=== PATIENT | female | born 1950 | race Caucasian/White ===

== ENCOUNTER 2024-07-03 09:08 | Observation (INO) | payer OTHER, SELFPAY ==
[2024-07-03] VITALS (22 sets, daily range): BP systolic 111–148; BP diastolic 67–85; PULSE 55–84; TEMP 36.7–37.1; O2SAT 93–97; BMI 19.7; BMI 18.3
--- NOTE | 2024-07-03 09:20 | CT_ITS ---
[address] [address] Patient Name: MERY KOO MRN: [id number] date: 1950 Sex: F Assigned Patient Location: ER Current Patient Location: ED.MAIN Accession/Order Number: [id number] Exam Date: 07/03/2024 09:50 Report Date: 07/03/2024 10:26 At the request of: RACHELL VIDALES Procedure: CT head/brain wo con EXAMINATION: CT head/brain wo con HISTORY: aMS ; confusion COMPARISON: No relevant comparison available. TECHNIQUE: Axial CT images were obtained without IV contrast. Dose reduction techniques were achieved by using automated exposure control and/or adjustment of mA and/or kV according to patient size and/or use of iterative reconstruction technique. FINDINGS: BRAIN: No edema, hemorrhage, mass, acute infarction, or inappropriate atrophy. CSF SPACES: No hydrocephalus, subarachnoid hemorrhage, or mass. Appropriate for age. SKULL: No fracture, mass, or other significant visible lesion. SINUSES: No significant mucosal thickening or fluid on the limited views. ORBITS: No appreciable abnormality on the limited views. OTHER: Negative CT/CT head/brain wo con IMPRESSION: 1. No intracranial hemorrhage, mass effect, or suspicious findings. 2. Age consistent chronic changes of the brain. 3. Clear sinuses. Electronically authenticated by: ZORAIDA CEDENO Date: 07/03/2024 10:26
--- NOTE | 2024-07-03 09:20 | ECG_ITS ---
The [facility] Test Date: 2024-07-03 Pat Name: MERY KOO Department: Room: - Gender: Female [place] [employer]: : 1950 Requested By: IVETT AGUILERA Order Number: [id number] Reading MD: KENDRICK BANKS Measurements Intervals [place] Rate: 64 P: 77 NV: 134 QRS: 70 QRSD: 88 T: 70 QT: 426 QTc: 435 Interpretive Statements 1100 Sinus rhythm 3434 Septal myocardial infarction, age undetermined 9150 abnormal ECG No previous ECG available for comparison Electronically Signed On 07-05-2024 8:01:16 EST by KENDRICK BANKS
--- NOTE | 2024-07-03 09:20 | XR_ITS ---
The [address] [address] Patient Name: MERY KOO MRN: [id number] date: 1950 Sex: F Assigned Patient Location: ER Current Patient Location: ER Accession/Order Number: [id number] Exam Date: 07/03/2024 09:50 Report Date: 07/03/2024 10:21 At the request of: RACHELL VIDALES Procedure: XR chest 1V EXAM: XR chest 1V HISTORY: . syncope . COMPARISON: None. TECHNIQUE: Single view of the chest FINDINGS: Heart and vascularity are unremarkable. Lungs are free of focal infiltrates. The inferior most aspect of the left cost phrenic angle was excluded on this exam. EKG leads overlie the chest. There is a scoliotic deformity of the thoracolumbar spine with convexity to the right. XR/XR chest 1V IMPRESSION: 1. No acute heart or lung disease identified. 2. Please see above comments. Electronically authenticated by: MARJORIE ASIF Date: 07/03/2024 10:21
--- NOTE | 2024-07-03 09:21 | ED_ITS ---
HPI HPI - General Adult General Chief complaint: Chest Pain Stated complaint: VOMITTING Time Seen by Provider: 07/03/24 09:14 Source: patient Mode of arrival: walk-in Limitations: no limitations History of Present Illness HPI narrative: Patient presenting to the emergency department with her for evaluation of overall not feeling well. Patient states that she drove her granddaughter to school, came back from drop-off, put her car in the garage. She states that she came to the house she started feeling weak, lightheaded, nauseated. states that he washer, that house, she had a stumble day and and sat herself on the couch. She just kept saying she did not feel well. He states that she slumped over and had a syncopal event for approximately 30 seconds to 1 minute. He states she was fully out. She woke up confused, did not remember what happened, just kept saying she did not feel right, and seemed to be altered and confused and. It lasted only several minutes. No shaking episodes, no seizure- like activity. No tongue biting or urination. He states that she then started throwing up. Patient states that she was never having chest pain. At that she was complaining of chest pain, they gave her sublingual nitro and a full dose aspirin. Patient states that she was having abdominal pain, lower part of the abdomen, but was never having any upper abdominal pain nor chest pain. States she is not sure why people keep saying chest pain. It was on the stomach. Patient states that other than feeling well as he had right now she has no complaints. Related Data Home Medications ?Medication ?Instructions ?Recorded ?Confirmed No Known Home Medications 07/03/24 07/03/24 Allergies Allergy/AdvReac Type Severity Reaction Status Date / Time No Known Drug Allergies Allergy Verified 07/03/24 09:10 Opioid HPI Opioid Management Most Recent Opioid Data: No Data to Display Review of Systems ROS Narrative Negative unless otherwise stated in the HPI PFSH PFSH Social History Little interest or pleasure in doing things: not at all Feeling down, depressed, or hopeless: not at all Exam Narrative Exam Narrative: General: NAD, AAOx3, no distress HEENT: NCAT, mmm Respiratory: respiratory effort normal, speaks in full sentences, no tripod position, no accessory muscle use. Lungs clear to auscultation without rhonchi, wheezes, rales Cardiac: Regular rate and rhythm, no edema, regular s1/s2, no m/g/r Abdomen: Soft, ND/NT. No evidence of fluid wave. No pulsatile masses on exam, rebound tenderness, Benito sign or pain over Mcburney's point. Neuro: Speech is clear and appropriate. Normal level of consciousness. Gait and coordination are normal. 5/5 strength in all extremities. Constitutional Vital Signs, click to edit/add: Last Vital Signs Temp 98.2 F 07/03/24 09:10 Pulse 62 07/03/24 10:30 Resp 19 07/03/24 10:30 BP 147/78 H 07/03/24 09:30 Pulse Ox 95 07/03/24 10:30 O2 Del Method Room Air 07/03/24 09:32 Course Vital Signs Vital signs: Vital Signs Temperature 98.2 F 07/03/24 09:10 Pulse Rate 63 07/03/24 09:10 Respiratory Rate 20 07/03/24 09:10 Blood Pressure 141/76 07/03/24 09:10 Pulse Oximetry 95 07/03/24 09:10 Oxygen Delivery Method Room Air 07/03/24 09:10 Temperature 98.2 F 07/03/24 09:10 Pulse Rate 62 07/03/24 10:30 Respiratory Rate 19 07/03/24 10:30 Blood Pressure 147/78 H 07/03/24 09:30 Pulse Oximetry 95 07/03/24 10:30 Oxygen Delivery Method Room Air 07/03/24 09:32 Medical Decision Making MDM Narrative Medical decision making narrative: [address] Crain, unprovoked syncope, mild hypocalcemia with mild ODALYS. Report was given, plan of care was discussed. He is in agreement with plan of care for admission for syncope Lab Data Labs: Lab Results 07/03/24 Range/Units 09:32 WBC 4.1 (4.0-11.0) 10^3/uL RBC 4.24 (4.20-5.40) 10^6/uL Hgb 13.6 (12.0-16.0) g/dL Hct 38.8 (36.0-48.0) % MCV 91.5 (81.0-99.0) fL MCH 32.1 (26.7-34.0) pg MCHC 35.1 (29.9-35.2) g/dL RDW 12.2 (11.0-15.0) % Plt Count 180 (150-450) 10^3/uL MPV 9.8 (9.5-13.5) fL Seg Neuts % (Manual) 85.0 H (43.0-75.0) Band Neutrophils % 3.0 (0-5) % Lymphocytes % (Manual) 6.0 L (20.5-60.0) % Monocytes % (Manual) 5.0 (1.7-12.0) % Eosinophils % (Manual) 0.0 L (0.9-7.0) % Basophils % (Manual) 1.0 (0.2-2.0) % Neutrophils # (Manual) 3.48 (1.4-6.5) 10^3/uL Band Neutrophils # 0.1 (0.0-0.3) 10^3/uL Lymphocytes # (Manual) 0.24 L (1.20-3.80) 10^3/uL Monocytes # (Manual) 0.20 L (0.30-0.80) 10^3/uL Eosinophils # (Manual) 0.00 (0.00-0.70) 10^3/uL Basophils # (Manual) 0.04 (0.00-0.10) 10^3/uL PT 11.1 (9.0-11.6) sec INR 1.05 APTT 26.5 (22.3-36.2) sec Sodium 137 (136-145) mmol/L Potassium 3.5 (3.5-5.1) mmol/L Chloride 101 (98-107) mmol/L Carbon Dioxide 24.2 (21.0-32.0) mmol/L Anion Gap 15.3 BUN 13.0 (7.0-18.0) mg/dL Creatinine 1.16 H (0.55-1.02) mg/dL Est GFR ( Amer) 55 L (>=60 mL/min/1.73m^2) Est GFR (Non-Af Amer) 46 L (>=60 mL/min/1.73m^2) BUN/Creatinine Ratio 11.2 Glucose 127 H (74-106) mg/dL Calcium 8.3 L (8.5-10.1) mg/dL Total Bilirubin 0.5 (0.2-1.0) mg/dL AST 44 H (15-37) U/L ALT 35 (14-59) U/L Alkaline Phosphatase 91 (46-116) U/L Troponin I High Sens <4.0 L (4.0-51.3) pg/mL Total Protein 6.2 L (6.4-8.2) g/dL Albumin 3.4 (3.4-5.0) g/dL Globulin 2.8 g/dL Albumin/Globulin Ratio 1.2 Lipase 21.0 (16.0-77.0) U/L Discharge Plan Discharge Chief Complaint: Chest Pain Patient Disposition: Admitted as Observation Time of Disposition Decision: 11:10 Prescriptions / Home Meds: No Action No Known Home Medications Print Language: Anguill[place] Referrals: IVETT AGUILERA DO [Primary Care Provider] - 1 week
[2024-07-03 09:42] LABS: Hematocrit 38.8 % (36.0-48.0); Hemoglobin 13.6 g/dL (12.0-16.0); Mean Corpuscular HGB Conc 35.1 g/dL (29.9-35.2); Mean Corpuscular Hemoglobin 32.1 pg (26.7-34.0); Mean Corpuscular Volume 91.5 fL (81.0-99.0); Mean Platelet Volume 9.8 fL (9.5-13.5); Platelet Count 180 10^3/uL (150-450); Red Blood Count 4.24 10^6/uL (4.20-5.40); Red Cell Distribution Width 12.2 % (11.0-15.0); White Blood Count 4.1 10^3/uL (4.0-11.0)
[2024-07-03 09:53] LABS: Band Neutrophils Absolute 0.1 10^3/uL (0.0-0.3); Basophils Abs Manual 0.04 10^3/uL (0.00-0.10); INR 1.05; Lymphocytes Absolute Manual 0.24 10^3/uL (1.20-3.80); Partial Thromboplastin Time 26.5 sec (22.3-36.2); Prothrombin Time 11.1 sec (9.0-11.6); Segmented Neut Absolute Manual 3.48 10^3/uL (1.4-6.5)
[2024-07-03 09:54] LABS: Alanine Aminotransferase 35 U/L (14-59); Albumin Globulin Ratio 1.2; Albumin Level 3.4 g/dL (3.4-5.0); Alkaline Phosphatase 91 U/L (46-116); Anion Gap 15.3; Aspartate Amino Transferase 44 U/L (15-37); BUN Creatinine Ratio 11.2; Bilirubin Total 0.5 mg/dL (0.2-1.0); Calcium 8.3 mg/dL (8.5-10.1); Carbon Dioxide 24.2 mmol/L (21.0-32.0); Chloride 101 mmol/L (98-107); Estimated GFR (African America 55 (>=60 mL/min/1.73m^2); Estimated GFR (Non-African Ame 46 (>=60 mL/min/1.73m^2); Globulin 2.8 g/dL; Glucose 127 mg/dL (74-106); Potassium 3.5 mmol/L (3.5-5.1); Sodium 137 mmol/L (136-145); Total Protein 6.2 g/dL (6.4-8.2); Troponin I High Sensitivity <4.0 pg/mL (4.0-51.3)
--- NOTE | 2024-07-03 13:31 | US_ITS ---
The [address] [address] Patient Name: MERY KOO MRN: [id number] date: 1950 Sex: F Assigned Patient Location: MS Current Patient Location: MS Accession/Order Number: [id number] Exam Date: 07/03/2024 13:32 Report Date: 07/03/2024 14:34 At the request of: KENDRICK BANKS Procedure: US carotid duplex BI DUPLEX ULTRASOUND EXAMINATION OF THE CAROTID ARTERIES. COMPARISON: None. HISTORY / INDICATIONS: Altered mental status. TECHNIQUE: Bilateral common carotid arteries, extracranial internal and external carotid arteries are evaluated with bermudez-scale imaging, color Doppler, and spectral analysis according to a standard protocol. ICA/CCA ratios are calculated with commercial pest control representative peak-systolic velocities and recorded. Vertebral arteries are evaluated in one segment to evaluate for patency and character of flow. Comparison with previous evaluation is performed when available. Unless otherwise specified, all velocities are measured in cm/sec. Carotid stenosis is reported according to validated velocity parameters, similar to NASCET criteria. FINDINGS: Right Carotid: Plaque was noted. Velocity measurements as follows: Internal Carotid Artery 80/28 and 192/39. ICA/CCA ratio: 3.2. Left Carotid: Plaque was noted. Velocity measurements as follows: Internal Carotid Artery 91/32 and 130/35. ICA/CCA ratio: 1.5. Antegrade flow was seen in both vertebral arteries. CONCLUSION: 1. 50% to 69% stenosis of the right ICA. 2. 50% to 69% stenosis of the left ICA. 3. Vertebral arteries are patent and demonstrate antegrade flow. Electronically authenticated by: Carlos SALCIDO Date: 07/03/2024 14:34
--- NOTE | 2024-07-03 13:31 | CA_ITS ---
Patient Name: MERY KOO MR#: [id number] : 1950 Exam Date: 07/03/2024 Ordering Doctor: DR KENDRICK BANKS . ECHOCARDIOGRAM REPORT PROCEDURE: CA ECHO DOPPLER COMPLETE INDICATIONS: Dyspnea, syncope COMPARISON: None. DESCRIPTION: COMPLETE ECHOCARDIOGRAM Real-time transthoracic echocardiography with 2D, M-mode, spectral and color flow Doppler performed. QUALITY: Technical quality was good. LEFT VENTRICLE: Normal chamber size. Mild concentric left ventricular hypertrophy. Global left ventricular systolic function is normal. LV EF: Estimated left ventricular ejection fraction is 65%. DIASTOLIC: Normal diastolic function. ATRIAL SEPTUM: LEFT ATRIUM: Normal chamber size. RIGHT ATRIUM: Normal chamber size. RIGHT VENTRICLE: Normal chamber size. Normal right ventricular systolic function. TRICUSPID VALVE: Normal mobility and thickness. No stenosis with mild regurgitation. Mild pulmonary hypertension. RVSP 37 mmHg MITRAL VALVE: Normal mobility and thickness. No evidence of mitral valve stenosis. Mild mitral annular calcification. Trivial mitral regurgitation. AORTIC VALVE: Normal trileaflet appearance. Thickened aortic valve. The noncoronary cusp is calcified at the tip. Normal leaflet mobility. No evidence of aortic valve stenosis. No aortic regurgitation. AORTIC ROOT: Normal diameter and appearance. PULMONIC VALVE: Normal thickness and mobility. No stenosis. Mild regurgitation. PERICARDIUM: No evidence of pericardial effusion. IVC: Collapses with inspirations. Normal size. PLEURA: CONCLUSION: 1. Mild concentric left ventricular hypertrophy with normal systolic function. Estimated LVEF is 65%. 2. Normal right ventricular size and systolic function. 3. Normal diastolic function. 4. No significant valvular dysfunction. 5. Mildly elevated right-sided pressures. Adult Echocardiography Procedure Report Left Ventricle LVEDD (3.7 - 5.6 cm): 3.81 cm LVESD (2.2 - 4.0 cm): 2.51 cm LVIVS thickness (0.6 - 1.2 cm): 1.11 cm LVPW thickness (0.5 - 1.0 cm): 1.10 cm e': 0.11 m/s E - e': 5.33 LVOT Max Gradient: 5.98 mm[Hg] LVOT Area (cm2): 1.22 m/s Peak Velocity (LVOT): 1.22 m/s Mean Velocity (LVOT): 0.78 m/s LVOT Diameter 1.73 cm Left Ventricular Ejection Fraction: 65 % Left Atrium LA Volume Index (2D A2C): 19.41 ml/m2 Left Atrium Systolic Dimension: 2.80 cm Mitral Valve MV E to A Ratio: 0.84 Mitral Valve A-Wave Peak Velocity: 0.70 m/s Mitral Valve E-Wave Peak Velocity: 0.59 m/s Right Ventricle RV Internal Diastolic Dimension: 2.98 cm Aorta AO Root Diam: 2.83 cm Ascending Ao Diam: 2.92 cm Aortic Valve AoV Area (Peak Scout): 2.39 cm2, 2.39 cm2 AoV Area (VTI): 2.14 cm2, 2.14 cm2 Peak Velocity(Antegrade Flow): 1.21 m/s Peak Gradient(Antegrade Flow): 5.83 mm[Hg] Mean Velocity(Antegrade Flow): 0.85 m/s Mean Gradient(Antegrade Flow): 3.26 mm[Hg] Velocity Time Integral: 28.34 cm Tricuspid Valve Peak Velocity (Regurgitant Flow): 2.93 m/s, 2.50 m/s Pulmonic Valve Mean Gradient: 1.71 mm[Hg] Mean Velocity: 0.62 m/s Peak Velocity: 0.81 m/s, 0.87 m/s Peak Gradient: 2.65 mm[Hg], 3.01 mm[Hg] Right Atrium Right Atrium Systolic Pressure: 34.52 ml, 34.52 ml Dictated by: Ruddy Estrella M.D. on 07/03/2024 at 19:29 Approved by: Ruddy Estrella M.D. on 07/03/2024 at 19:33
[2024-07-03 13:53] LABS: Magnesium 1.9 mg/dL (1.8-2.4)
--- NOTE | 2024-07-03 14:02 | NUTR.NU ---
Dietary consult completed this date. CBW 107.3# BMI 18.3 low underweight Interviewed Charlene at bedside. Charlene shared she lost weight starting after her 1st in 2011. Weight at that time was 185# Charlene shared she cooks and eats meals. Charlene has muscle wasting and loss of subcutaneous fat. Recommend Ensure 1 container po bid nutritional supplement.
[2024-07-03 14:06] LABS: Thyroid Stimulating Hormone 0.869 uIU/mL (0.358-3.740)
--- NOTE | 2024-07-03 14:13 | P.HP_ITS ---
HPI H&P: HPI History of Present Illness Chief complaint: VOMITTING, SYNCOPE Narrative: Patient had an at this morning, witnessed syncope, prior to that she felt a little bit off balance but was able to walk but when she walked in the door she does not really recall falling, but does remember getting more tunnel vision according to the reports she was passed out for probably 30 seconds to a minute, took a few minutes to get back reoriented but then was her normal self, no seizure activity noted, after discussion she did have another event earlier in the day where she sent a text message to her daughter but is not resending the text message she took her granddaughter to school she does remember doing that and coming home, the text message was prior to taking her granddaughter to school. Has not had any episodes of this that she knows of. No syncope for sure. She does not take any medications currently. Opioid HPI Opioid Management Most Recent Pain and Opioid Data: Last Pain Scale 0 07/03/24 12:03 07/03/24 Last Pain Assessment 07/03/24 13:52 Last ORT Total Score 1 07/03/24 12:03 07/03/24 Last ORT Risk Category Low Risk 07/03/24 12:03 07/03/24 Review of Systems ROS Status of ROS 10 or more systems reviewed and unremark able except as noted in history and below PFS PFS Medical History (Updated 07/03/24 @ 12:19 by Nidhi Saldaña) Chronic obstructive pulmonary disease ?J44.9 - Chronic obstructive pulmonary disease, unspecified (ICD-10) Hypoglycemia ?E16.2 - Hypoglycemia, unspecified (ICD-10) Uterine cancer ?C55 - Malignant neoplasm of uterus, part unspecified (ICD-10) Family History (Updated 07/03/24 @ 12:43 by Nidhi Saldaña) Father Family history of COPD (chronic obstructive pulmonary disease) Mother Family history of cancer Grandfather Family history of diabetes mellitus Brother Family history of diabetes mellitus Family history of hypertension Other Family history of myocardial infarction Social History (Updated 07/03/24 @ 12:45 by Nidhi Saldaña) Within the past year, how often did you have a drink containing alcohol: monthly or less Within the past year, how many standard drinks containing alcohol did you have on a typical day: 1 or 2 Within the past year, how often did you have six or more drinks on one occasion: never Total score: 0 Score interpretation: A score less than 3 is consistent with normal alcohol consumption. Smoking status: Former smoker Non-prescribed substance use: denies use Previous occupational history: Known occupational exposures/hazards: No Highest level of school completed/degree received: Master's degree Do you want help with school or training: No Are you now , , , , never or living with a partner: In a typical week, how many times do you talk on the telephone with family, friends, or neighbors: 3 or more times per week How often do you get together with friends or relatives: 3 or more times per week How often do you attend methodist or mormonism services: never Do you belong to any clubs or organizations such as methodist groups unions, [employer] or athletic groups, or school groups: no Total score: 2 Score interpretation: A score of greater than or equal to 2 indicates the lowest level of social isolation. Little interest or pleasure in doing things: not at all Feeling down, depressed, or hopeless: not at all Feel stressed/tense/nervous/anxious/difficulty sleeping: not at all Due to disability, difficulty making decisions: No Do you think of yourself as: straight/heterosexual Gender Identity: female Meds Home Medications and Allergies Home Medications ?Medication ?Instructions ?Recorded ?Confirmed ?Type No Known Home Medications 07/03/24 07/03/24 History Allergies Allergy/AdvReac Type Severity Reaction Status Date / Time No Known Drug Allergies Allergy Verified 07/03/24 09:10 Exam Constitutional Vital Signs, click to edit/add: Last Vital Signs Temp 98.4 F 07/03/24 12:03 Pulse 72 07/03/24 12:03 Resp 16 07/03/24 12:03 BP 124/74 07/03/24 12:03 Pulse Ox 97 07/03/24 12:03 O2 Del Method Room Air 07/03/24 12:03 Documenting provider has reviewed patient's vital signs: yes Common normals: no apparent distress Chest Common normals: inspection of chest normal and palpation of chest normal Respiratory Common normals: normal respiratory effort and no retractions Auscultation: diminished lung sounds Cardio Common normals: regular rate, regular rhythm and no murmurs GI Common normals: Normal to inspection, nondistended, normoactive bowel sounds present and soft to palpation Results Labs Labs: Short CBC 07/03/24 Range/Units 09:32 WBC 4.1 (4.0-11.0) 10^3/uL Hgb 13.6 (12.0-16.0) g/dL Hct 38.8 (36.0-48.0) % Plt Count 180 (150-450) 10^3/uL BMP 07/03/24 09:32 Sodium 137 Potassium 3.5 Chloride 101 Carbon Dioxide 24.2 BUN 13.0 Creatinine 1.16 H Glucose 127 H Calcium 8.3 L Liver Function 07/03/24 Range/Units 09:32 Total Bilirubin 0.5 (0.2-1.0) mg/dL AST 44 H (15-37) U/L ALT 35 (14-59) U/L Alkaline Phosphatase 91 (46-116) U/L Albumin 3.4 (3.4-5.0) g/dL Assessment and Plan Assessment and Plan (1) Syncope: (2) Chronic obstructive pulmonary disease: Plan Admission findings: Mildly elevated high blood pressure on admission, slightly elevated creatinine although uncertain of what her baseline is. This occurred after witnessed syncopal episode. Witnessed syncopal episode-CT scan unremarkable, the episode lasted approximately 2 minutes in total, passed out for probably 1 minute and then a minute or so where she was little confused. As there is since that time she been back to her baseline. There is no focal neurological deficits and there is no seizure activity. Watch patient on telemetry, check carotid Doppler and echocardiogram for possible TIA. Will hold off on MRI scan unless symptoms deteriorate, no sign of acute intracranial bleeding at this time. Borderline hypertension-monitor patient does not take any medications currently COPD-patient longer smoking. And currently no symptoms. Admission status: Patient with syncopal episode, will watch on telemetry, medically necessary treatment likely to only span 1 midnight. Observation status. If condition deteriorates necessitating more than 2 midnights, will change patient to inpatient status at that time
[2024-07-03 16:56] LABS: Bilirubin Urine NEGATIVE (NEGATIVE); Blood Urine SMALL (NEGATIVE); Clarity Urine CLEAR (CLEAR); Color Urine LT. YELLOW (YELLOW); Glucose Urine UA NEGATIVE (NEGATIVE); Ketones Urine 15 mg/dL (NEGATIVE); Leukocyte Esterase Urine NEGATIVE (NEGATIVE); Nitrite Urine NEGATIVE (NEGATIVE); Protein Urine NEGATIVE (NEG/TRACE); Urobilinogen Urine 0.2 EU/dL (0.2-1.0)
[2024-07-03 17:11] LABS: Bacteria Urine TRACE #/HPF (NONE SEEN); Cast Seen? NONE SEEN #/LPF (NONE SEEN); Crystals Seen? None Seen #/HPF (None Seen); Mucus Urine TRACE (NONE SEEN); Squamous Epithelial Cell Urine FEW #/LPF (NONE/RARE); WBC Urine NONE SEEN #/HPF (NONE SEEN)
[2024-07-03 17:12] LABS: Urine Culture Indicated NO
[2024-07-03] MEDS: BENZONATATE 100 MG CAPSULE 200 MG PO (21:30)
[2024-07-04] VITALS (7 sets, daily range): BP systolic 107–113; BP diastolic 69; PULSE 61–90; TEMP 36.9–37.2; O2SAT 91–97
[2024-07-04 06:28] LABS: Basophils Percent Auto 0.6 % (0.2-2.0); Eosinophils Percent Auto 0.3 % (0.9-7.0); Hematocrit 38.2 % (36.0-48.0); Hemoglobin 13.1 g/dL (12.0-16.0); Immature Granulocytes Abs Auto 0.01 10^3/uL (0.00-0.03); Immature Granulocytes Pct Auto 0.3 % (0.0-0.5); Lymphocytes Absolute Auto 0.9 10^3/uL (1.2-3.8); Lymphocytes Percent Auto 27.8 % (20.5-60.0); Mean Corpuscular HGB Conc 34.3 g/dL (29.9-35.2); Mean Corpuscular Hemoglobin 31.1 pg (26.7-34.0); Mean Corpuscular Volume 90.7 fL (81.0-99.0); Monocytes Absolute Auto 0.4 10^3/uL (0.3-0.8); Monocytes Percent Auto 10.4 % (1.7-12.0); Neutrophils Absolute Auto 2.1 10^3/uL (1.4-6.5); Neutrophils Percent Auto 60.6 % (43.0-75.0); Platelet Count 180 10^3/uL (150-450); Red Blood Count 4.21 10^6/uL (4.20-5.40); Red Cell Distribution Width 12.4 % (11.0-15.0); White Blood Count 3.4 10^3/uL (4.0-11.0)
[2024-07-04 06:39] LABS: Anion Gap 10.1; BUN Creatinine Ratio 11.7; Carbon Dioxide 27.7 mmol/L (21.0-32.0); Chloride 102 mmol/L (98-107); Estimated GFR (African America >60 (>=60 mL/min/1.73m^2); Estimated GFR (Non-African Ame 58 (>=60 mL/min/1.73m^2); Glucose 112 mg/dL (74-106); Potassium 3.8 mmol/L (3.5-5.1); Sodium 136 mmol/L (136-145)
--- NOTE | 2024-07-04 08:33 | CM.NOTE ---
Rounds made with Dr. Crain, pt will discharge to home on Holter Monitor and f/u with PCP.
--- NOTE | 2024-07-04 09:25 | P.DS_ITS ---
DS: Providers Provider Date of admission: 07/03/24 11:40 Primary care physician: IVETT AGUILERA DO Consults: 07/03/24 Consult to Dietitian Routine Reason for consultation: decresed n[place], weight loss 07/03/24 13:28 Occupational Therapy Eval and Treat Routine Reason for consultation: Only if needed for Rehab Has provider been notified: No Physical Therapy Eval and Treat Routine Reason for consultation: Eval and Treat Has provider been notified: No DS: Diagnosis Discharge Diagnosis (1) Syncope: (2) Chronic obstructive pulmonary disease: Plan Admission findings: Mildly elevated high blood pressure on admission, slightly elevated creatinine although uncertain of what her baseline is. This occurred after witnessed syncopal episode. Witnessed syncopal episode-CT scan unremarkable, the episode lasted approximately 2 minutes in total, passed out for probably 1 minute and then a minute or so where she was little confused. As there is since that time she been back to her baseline. There is no focal neurological deficits and there is no seizure activity. Watch patient on telemetry, check carotid Doppler and echocardiogram for possible TIA. Will hold off on MRI scan unless symptoms deteriorate, no sign of acute intracranial bleeding at this time. Borderline hypertension-monitor patient does not take any medications currently COPD-patient longer smoking. And currently no symptoms. Admission status: Patient with syncopal episode, will watch on telemetry, medically necessary treatment likely to only span 1 midnight. Observation status. If condition deteriorates necessitating more than 2 midnights, will change patient to inpatient status at that time ? DS: Summary Hospital Course Hospital Course: Patient admitted with a witnessed syncopal event. She has some mild prodromal symptoms just before it, but then passed out. She was monitored here, nothing on telemetry that would be significant for causing syncope, carotid Doppler and echocardiogram were unremarkable. This morning however she had this severe sore throat, ordered COVID and influenza titers as that has been predominant in our local community, and she did test positive for COVID. Do not believe this caused her syncope., Will place patient on the Holter monitor the time of discharge, with age patient high risk for complications from COVID-19 and so we will send in medication. Medications see list. Follow-up with PCP next week. Status at Discharge Overall status at discharge: patient is back to baseline Time Spent with Patient Time attestation: Total time spent providing and/or coordinating discharge services: Time spent: greater than 30 minutes Exam Constitutional Vital Signs, click to edit/add: Last Vital Signs Temp 99.0 F 07/04/24 08:00 Pulse 64 07/04/24 08:00 Resp 18 07/04/24 08:00 BP 113/69 07/04/24 08:00 Pulse Ox 91 L 07/04/24 08:00 O2 Del Method Room Air 07/04/24 08:00 Documenting provider has reviewed patient's vital signs: yes Common normals: no apparent distress [facility] Common normals: normocephalic Mouth: oral and palatal mucosa normal Chest Common normals: inspection of chest normal and palpation of chest normal Respiratory Common normals: normal respiratory effort and no retractions Auscultation: diminished lung sounds Cardio Common normals: regular rate, regular rhythm and no murmurs GI Common normals: Normal to inspection, nondistended, normoactive bowel sounds present and soft to palpation DS: Data Data Completed and Pending Labs on day of discharge: Labs from last 24 hours 07/04/24 07/03/24 07/03/24 05:59 16:40 09:32 WBC 3.4 L 4.1 RBC 4.21 4.24 Hgb 13.1 13.6 Hct 38.2 38.8 MCV 90.7 91.5 MCH 31.1 32.1 MCHC 34.3 35.1 RDW 12.4 12.2 Plt Count 180 180 MPV 10.0 9.8 Neut % (Auto) 60.6 Lymph % (Auto) 27.8 [place] % (Auto) 10.4 Eos % (Auto) 0.3 L Baso % (Auto) 0.6 Neut # (Auto) 2.1 Lymph # (Auto) 0.9 L [place] # (Auto) 0.4 Eos # (Auto) 0.0 Baso # (Auto) 0.0 Abs Immat Gran (auto) 0.01 Seg Neuts % (Manual) 85.0 H Band Neutrophils % 3.0 Lymphocytes % (Manual) 6.0 L Monocytes % (Manual) 5.0 Eosinophils % (Manual) 0.0 L Basophils % (Manual) 1.0 Imm/Tot Granulo (auto) 0.3 Neutrophils # (Manual) 3.48 Band Neutrophils # 0.1 Lymphocytes # (Manual) 0.24 L Monocytes # (Manual) 0.20 L Eosinophils # (Manual) 0.00 Basophils # (Manual) 0.04 PT 11.1 INR 1.05 APTT 26.5 Sodium 136 137 Potassium 3.8 3.5 Chloride 102 101 Carbon Dioxide 27.7 24.2 Anion Gap 10.1 15.3 BUN 11.0 13.0 Creatinine 0.94 1.16 H Est GFR ( Amer) >60 55 L Est GFR (Non-Af Amer) 58 L 46 L BUN/Creatinine Ratio 11.7 11.2 Glucose 112 H 127 H Calcium 8.0 L 8.3 L Magnesium 1.9 Total Bilirubin 0.5 AST 44 H ALT 35 Alkaline Phosphatase 91 Troponin I High Sens <4.0 L NT-Pro-B Natriuret Pep 231.0 Total Protein 6.2 L Albumin 3.4 Globulin 2.8 Albumin/Globulin Ratio 1.2 Lipase 21.0 TSH 0.869 Urine Color Lt. yellow Urine Clarity Clear Urine pH 6.0 Ur Specific [place] 1.020 Urine Protein Negative Urine Glucose (UA) Negative Urine Ketones 15 A Urine Occult Blood Small A Urine Nitrite Negative Urine Bilirubin Negative Urine Urobilinogen 0.2 Ur Leukocyte Esterase Negative Urine RBC 2-5 A Urine WBC None seen Ur Squamous Epith Cells Few A Urine Crystals None seen Urine Bacteria Trace A Urine Casts None seen Urine Mucus Trace A Ur Culture Indicated? No Discharge Plan Discharge Disposition: Home, Self-Care Discharge Medications: New Paxlovid 300 mg (150 mg x 2)-100 mg tablets,dose pack See Rx Instructions .ROUTE .COMPLEX Qty: 30 0RF Rx Instructions: take TWO 150 mg tablets of nirmatrelvir with ONE 100 mg tablet of ritonavir twice daily for 5 days Pharmacy: Normal creatinine dexamethasone 6 mg tablet 6 mg PO DAILY Qty: 5 0RF azithromycin 250 mg tablet See Rx Instructions .ROUTE .COMPLEX Qty: 6 0RF Rx Instructions: For 250 mg dose pack: take 500 mg today (day 1), then 250 mg for 4 days (days 2-5) Activity: resume usual activities as tolerated Diet: advance to your usual diet Print Language: [place] Patient Instructions: Syncope (DC) Forms: Portal Instructions Follow Up Appointments: Dr. Aguilera's office will call to schedule a follow up appt. [phone]
[2024-07-04 09:55] LABS: Influenza Virus A Antigen Negative; Influenza Virus B Antigen Negative; Internal Control Within Normal Limits
[2024-07-04 09:56] LABS: Internal Control Within Normal Limits; SARS-CoV-2 Ag POSITIVE (NEGATIVE)
--- NOTE | 2024-07-05 15:29 | CM.DCFOLLOWU ---
Person spoke with:patient How are you feeling?well, taking it easy How is your pain?none Did you understand your discharge instructions?yes Do you have any questions about your discharge instructions? no Were you given any prescriptions at discharge? yes Were you able to get your prescriptions filled? yes Do you understand how to take your medications as ordered? yes Do you have any questions about your follow up appointment and do you plan to keep your follow up appointment? no questions, she is waiting to hear from Dr. Stearns Is there anything else that you would like to discuss? no Questions/Comments/Concerns/Other:none
== END 2024-07-04 11:57 | disposition home or self-care (01) ==
LOC: ER 11:10 → MS 11:44
PROVIDERS: Admitting Provider Family Medicine; Emergency Provider Emergency Medicine; PCP Internal Medicine; Visit Provider Family Medicine
DX: R55 Syncope and collapse (principal); R07.9 Chest pain, unspecified; J44.9 Chronic obstructive pulmonary disease, unspecified; Z87.891 Personal history of nicotine dependence; R03.0 Elevated blood-pressure reading, without diagnosis of hypertension; U07.1 COVID-19
CPT/HCPCS: 36415; 70450; 71045; 80048; 80053; 81001; 83690; 83735; 83880; 84443; 84484; 85007; 85025; 85027; 85610; 85730; 87804; 87811; 93005; 93246; 93306; 93880; 94761; 97161; 97165; 99285; G0378